=== PATIENT | male | born 1970 | race Caucasian/White ===

== ENCOUNTER 2024-01-28 19:29 | Emergency (ER) | payer BC, SELFPAY ==
[2024-01-28 19:39] VITALS: BP 161/120; PULSE 115; RESP 20; TEMP 36.6; O2SAT 97; BMI 38.0
--- NOTE | 2024-01-28 19:43 | XR_ITS ---
PROCEDURE INFORMATION: Exam: XR Left Knee Exam date and time: 01/28/2024 8:11 PM Age: 53 years old Clinical indication: Pain; Knee; Left; Additional info: Twisted on planted foot, knee pain/effusion TECHNIQUE: Imaging protocol: Radiologic exam of the left knee. Views: 3 views. COMPARISON: CR XR TIBIA FIBULA LT 2V 01/28/2024 8:09 PM FINDINGS: Bones/joints: Normal. Soft tissues: Normal. IMPRESSION: No acute findings.
--- NOTE | 2024-01-28 19:43 | XR_ITS ---
PROCEDURE INFORMATION: Exam: XR Left Tibia and Fibula Exam date and time: 01/28/2024 8:09 PM Age: 53 years old Clinical indication: Pain; Lower leg; Left; Additional info: Twisted on planted foot, knee pain/effusion TECHNIQUE: Imaging protocol: Radiologic exam of the left tibia and fibula. Views: 2 views. COMPARISON: No relevant prior studies available. FINDINGS: Bones/joints: Calcaneal spurring. No acute fracture or dislocation. Soft tissues: Normal. IMPRESSION: No acute findings.
--- NOTE | 2024-01-28 19:43 | XR_ITS ---
PROCEDURE INFORMATION: Exam: XR Left Femur Exam date and time: 01/28/2024 8:12 PM Age: 53 years old Clinical indication: Pain; Thigh; Left; Additional info: Twisted on planted foot, knee pain/effusion TECHNIQUE: Imaging protocol: Radiologic exam of the left femur. Views: 2 views. COMPARISON: CR XR KNEE LT 3V 01/28/2024 8:11 PM FINDINGS: Bones/joints: Unremarkable. No acute fracture. Soft tissues: Unremarkable. IMPRESSION: No acute findings.
[2024-01-28] MEDS: ACETAMINOPHEN 500MG TAB 1000 MG PO (19:55)
[2024-01-28] MEDS: OXYCODONE 5MG IMMEDIATE RELEASE TABLET 5 MG PO (19:56)
[2024-01-28] MEDS: KETOROLAC 30MG/ML VIAL 30 MG IM (19:56)
--- NOTE | 2024-01-28 19:59 | ED_ITS ---
Discharge Plan Disposition Patient Disposition: Home, Self-Care Condition: Good Prescriptions Prescriptions: New hydrocodone-acetaminophen 5-325 mg tablet 1 tab PO Q8H PRN (Reason: pain) Qty: 12 0RF Referrals Follow up/Referrals: Jace Mcdaniel DO [Staff Physician] - See instructions Chuy Haas MD [Primary Care Provider] - See instructions Activity Restrictions/Add. Instructions Additional Instructions/Restrictions: You were evaluated in the emergency department today. Please follow-up closely with Dr. Mcdaniel with orthopedics for further evaluation and management. You will need to call his office to schedule an appointment. receiving supervisor your prescription and take as needed for severe pain. Do not drive or operate heavy machinery while taking narcotic pain medication. You may also take ibuprofen in addition to this. Instead of this medication, you may take Tylenol, however be mindful not to double up on Tylenol as this medication does contain acetaminophen. Rest, ice, and elevate your leg to reduce pain and swelling. You may bear weight on your leg as tolerated, however we are providing crutches for you to use as needed to limit weightbearing in the event of pain or instability. Return to the emergency department for new or worsening symptoms. Clinical Impressions Clinical Impression: Effusion, left knee, Acute pain of left knee Stand Alone Forms Stand Alone Forms: Work/School Release Instructions Patient Instructions: DI for Knee Effusion, DI for Knee Pain Discharge ED Provider: Sheila Willams General Adult HPI General Chief complaint: Extremity Injury, Lower Stated complaint: AO 01/28/24 1830 injury left knee Time Seen by Provider: 01/28/24 19:31 Mode of Arrival: Wheelchair Source of Information: Patient Limitations: No Limitations Description of Symptoms (Recalled from ER Triage Doc. by RN): pt to ed with c/o left knee injury that happened approx 1 hour ago. 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 pt denies any other injury or pain. denies hitting his head, denies loc. pt has not taken any medications for the pain. reports pain 7/10 History of Present Illness HPI narrative: This patient is a 53-year-old male who denies significant past medical history presenting to the emergency department for evaluation with concern for left knee pain. Patient reports that he was chasing cows when he pivoted on a planted left lower extremity and his left knee gave out. This caused him to fall. He did not hit his head or lose consciousness, but he complains of significant knee pain with swelling at this time. No numbness, tingling, or other concerns. He was well prior to this. This happened just prior to arrival. Related Data Previous Rx's Medication Instructions Recorded hydrocodone 5 mg-acetaminophen 325 1 tab PO Q8H PRN pain #12 tabs 01/28/24 mg tablet Allergies Allergy/AdvReac Type Severity Reaction Status Date / Time No Known Allergies Allergy Verified 01/28/24 19:52 [facility] Disclaimer: The information contained in this section may have been updated after the patient was seen, as this information can be updated by other users. Social History Smoking Status: Never smoker alcohol intake: never current occupational status: employed Travel in the last 8 weeks: None ROS Obtained: Yes All systems reviewed & no additional complaints except as documented Physical Exam General General appearance: alert and obese Comment: Uncomfortable appearing Head Head exam: atraumatic and normocephalic Eye Eye exam: Present normal appearance, PERRL and EOMI ENT ENT exam: Present normal exam, normal oropharynx, mucous membranes moist and normal external ear exam Neck Neck exam: Present normal inspection, full ROM and trachea midline; Absent tenderness Chest Chest inspection: Present normal inspection and symmetric chest wall rise; Absent tenderness Respiratory Respiratory exam: Present normal lung sounds bilaterally; Absent respiratory distress, wheezes, stridor or accessory muscle use Cardiovascular Cardiovascular exam: Present regular rate and normal rhythm Abdominal Exam Abdominal exam: Present soft; Absent distention, tenderness or guarding Extremities Exam Extremities exam: Present full ROM, tenderness (Left knee effusion with associated tenderness to palpation. Intact quadriceps function with preserved straight leg raise. All compartments soft. Neurovascularly intact distally.) and normal capillary refill; Absent edema Back Exam Back exam: Present normal inspection and full ROM; Absent tenderness Neurological Exam Neurological exam: Present alert, oriented X3, CN II-XII intact and normal gait; Absent motor sensory deficit Psychiatric Psychiatric exam: Present normal affect and normal mood Skin Skin exam: Present warm and dry Medical Decision Making Medical Records Medical records reviewed: Yes I reviewed the patient's medical records. Tip Inquiry Pt receiving controlled substance: Yes Tip was queried for this patient: Yes Risks and benefits of using a controlled substance: were discussed with pt by me Vital Signs: 01/28/24 19:39 01/28/24 20:00 01/28/24 21:00 Temperature 97.9 F Temperature Source Oral Pulse Rate 107 H 98 H Pulse Rate [Right Radial] 115 H Respiratory Rate 20 Blood Pressure 140/95 H 145/103 H Blood Pressure [Right Arm] 161/120 H Blood Pressure Mean 110 113 Blood Pressure Mean [Right Arm] 133 Blood Pressure Source [Right Arm] Automatic Cuff Blood Pressure Position [Right Arm] Sitting 02 Sat by Pulse Oximetry 97 96 96 Oxygen Delivery Method Room Air 01/28/24 21:59 Temperature 97.9 F Temperature Source Oral Pulse Rate 91 H Pulse Rate [Right Radial] Respiratory Rate 18 Blood Pressure 143/91 H Blood Pressure [Right Arm] Blood Pressure Mean Blood Pressure Mean [Right Arm] Blood Pressure Source [Right Arm] Blood Pressure Position [Right Arm] 02 Sat by Pulse Oximetry Oxygen Delivery Method Lab Data Lab results reviewed: Yes I reviewed the patient's lab results. Orders (Tests/Meds): ED MEDICATIONS Discontinued Medications Generic Name Dose Route Start Last Admin Trade Name Freq PRN Reason Stop Dose Admin Acetaminophen 1,000 mg 01/28/24 19:43 01/28/24 19:55 Acetaminophen 500mg Tab PO 01/28/24 19:44 1,000 mg ONCE ONE Administration Ketorolac Tromethamine 30 mg 01/28/24 19:43 01/28/24 19:56 Ketorolac 30mg/Ml Vial IM 01/28/24 19:44 30 mg ONCE ONE Administration Oxycodone HCl 5 mg 01/28/24 19:44 01/28/24 19:56 Oxycodone 5mg Immediate Release Tablet PO 01/28/24 19:45 5 mg ONCE ONE Administration ORDERS Category Date Time Status XR femur LT 2V Stat Exams 01/28/24 19:43 Completed XR knee LT 3V Stat Exams 01/28/24 19:43 Completed XR tibia fibula LT 2V Stat Exams 01/28/24 19:43 Completed Medical Decision Narrative: In summary, this patient is a 53-year-old male presenting to the Emergency Department for evaluation of left knee pain after a plant and twist. Differential diagnoses considered include but are not limited to ligamentous injury, cartilaginous injury, fracture, contusion, strain/sprain. Ruling out the most morbid conditions drove assessment. On exam, the patient is uncomfortable appearing with a left knee effusion. Intact quadriceps function with intact straight leg raise. All compartments soft, neurovascularly intact distally. Workup included x-rays of the left femur, knee, and tib-fib. He was given oral oxycodone, IM Toradol, and oral Tylenol for symptomatic improvement. I independently interpreted x-ray prior to the radiologist read and noted cute fracture. Please see their read for final interpretation. On reassessment, patient is resting comfortably with improved pain. He is neuro vascularly intact. Given negative x-rays and reassuring exam, I feel that he is appropriate for discharge with close outpatient follow-up with orthopedics. He was given instructions for this as well as knee immobilizer and crutches. Patient was given a prescription for [place] given pain with significant knee effusion concerning for ligamentous injury. He was given instructions for safe use as well as strict return precautions. Patient was discharged after all questions were answered. Critical Care Critical Care Time Critical Care Time: No
[2024-01-28 20:00] VITALS: BP 140/95; PULSE 107; O2SAT 96
[2024-01-28 21:00] VITALS: BP 145/103; PULSE 98; O2SAT 96
--- NOTE | 2024-01-28 21:25 | PC.NURSE ---
spoke with radiology about scans reports
[2024-01-28 21:59] VITALS: BP 143/91; PULSE 91; RESP 18; TEMP 36.6; O2SAT 97
--- NOTE | 2024-01-29 10:54 | PC.NURSE ---
Accessed pt chart to complete ortho paperwork
== END 2024-01-28 22:00 | disposition home or self-care (01) ==
PROVIDERS: Emergency Provider Emergency Medicine; PCP Family Medicine
DX: M25.562 Pain in left knee (principal); M25.462 Effusion, left knee
CPT/HCPCS: 73552; 73562; 73590; 96372; 99283

== ENCOUNTER 2024-02-06 15:51 | Outpatient (CLI) | payer BC, SELFPAY ==
--- NOTE | 2024-02-06 15:55 | MR_ITS ---
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 Exam focused on the knee. COMPARISON: 1. CR XR KNEE LT 3V 01/28/2024 8:11 PM 2. CR XR FEMUR LT 2V 01/28/2024 8:12 PM 3. CR XR TIBIA FIBULA LT 2V 01/28/2024 8:09 PM FINDINGS: Bones/joints: There is bony contusion of the lateral femoral condyle. There is a moderate-sized joint effusion with associated synovitis. There is significant chondromalacia in the medial patellofemoral compartment. There is a contusion of the posterolateral tibial plateau Medial meniscus: Unremarkable. No tear. Lateral meniscus: Unremarkable. No tear. Anterior cruciate ligament: There is a full-thickness tear of the anterior cruciate ligament. Posterior cruciate ligament: Unremarkable. No tear. Medial capsule and supporting structures: Unremarkable. No tear. Lateral capsule and supporting structures: Unremarkable. No tear. Extensor mechanism of knee: Unremarkable. No tear. Soft tissues: Unremarkable. IMPRESSION: 1. Torn anterior cruciate ligament. 2. Moderate joint effusion with synovitis. 3. Bony contusions of the lateral femoral condyle and posterolateral tibial plateau without displaced fracture identified.
== END 2024-02-06 23:59 | disposition home or self-care (01) ==
LOC: RAD 15:52
PROVIDERS: PCP Family Medicine; Visit Provider Physician Assistant
DX: M25.562 Pain in left knee (principal)
CPT/HCPCS: 73721

== ENCOUNTER 2024-02-17 16:18 | Emergency (ER) | payer BC, SELFPAY ==
--- NOTE | 2024-02-17 16:16 | ED_ITS ---
<Statement entered by Rodo Domínguez MD - 02/17/24 18:11> I was consulted by the MARCIE, and we discussed the complexity of the problems being addressed. I approved the treatment and management plan for this patient's care in the emergency department, thus performing a substantive portion of the medical decision making. Patient has provoked bilateral pulmonary emboli status post tPA on original admission, downtrending troponins was discharged this morning. Patient is not able to complete activities of daily living at home, has uptrending leukocytosis, pulmonary infarct versus pneumonia that has been covered with ceftriaxone and azithromycin. First dose of Xarelto administered in the ER today, received Lovenox earlier this morning. Patient requires higher level care at this time will be transferred to [facility]. Rodo Domínguez MD Discharge Plan Disposition Patient Disposition: Xfer Short-Term Hosp Condition: Serious Chief Complaint: Chest Pain Prescriptions Prescriptions: No Action meloxicam 15 mg tablet 15 mg PO DAILY Xarelto DVT-PE Treat 30d Start 15 mg (42)- 20 mg (9) tablets,dose pack See Rx Instructions .ROUTE .COMPLEX Qty: 51 0RF Rx Instructions: take one-15 mg tablet twice daily for 21 days, then one-20 mg tablet once daily; must take with meal/food pantoprazole [Protonix] 40 mg tablet,delayed release (DR/EC) 40 mg PO DAILY Qty: 30 0RF Referrals Follow up/Referrals: Provider,Referral, [Referring] - See instructions Activity Restrictions/Add. Instructions Additional Instructions/Restrictions: Transfer to [facility] emergency department in care of Dr. Oseguera Clinical Impressions Clinical Impression: Sepsis without septic shock, Multiple pulmonary emboli, Bilateral pneumonia Stand Alone Forms Stand Alone Forms: Transfer Record - ED Discharge ED Provider: Rodo Domínguez HPI <ALTHEA Krueger - Last Filed: 02/17/24 17:58> General Chief Complaint: Chest Pain Stated Complaint: chest pain Time Seen by Provider: 02/17/24 16:19 History of Present Illness HPI narrative: Patient presents for evaluation of chest pain. Patient was just discharged this morning after eating admitted for multiple pulmonary emboli. The sequela started after he injured his left knee in November suffering an ACL injury. Patient presented in the morning hours of February 14 with respiratory distress. He was found to have multiple pulmonary emboli and he was unstable and was given tPA and admitted to our facility he underwent cardiology evaluation including bedside echo that did not show significant heart strain or heart failure. He had had an initially elevated troponin that has trended down. He did not have chest pain prior to his discharge and was not sent home with oxygen. He was transition to oral anticoagulants with Eliquis starter pack. However after arriving home patient has been home approximately 1 hour sitting in a chair and he started having right-sided chest pain in the lower chest and subsequently called EMS. Patient currently reports that his chest pain has diminished quite a bit but still reports shortness of breath feeling subjectively feverish but denies nausea vomiting diarrhea hemoptysis hematochezia melena hematemesis. Related Data Home Medications Medication Instructions Recorded Confirmed meloxicam 15 mg tablet 15 mg PO DAILY 02/15/24 02/15/24 Previous Rx's Medication Instructions Recorded pantoprazole 40 mg tablet,delayed 40 mg PO DAILY #30 tabs 02/17/24 release (Protonix) rivaroxaban 15 mg (42)-20 mg (9) See Rx Instructions PO .COMPLEX 02/17/24 tablets in a starter pack (Xarelto #51 tabs DVT-PE Treatment 30-Day Starter) Allergies Allergy/AdvReac Type Severity Reaction Status Date / Time No Known Allergies Allergy Verified 02/15/24 08:19 [facility] <ALTHEA Krueger - Last Filed: 02/17/24 17:58> [facility] Disclaimer: The information contained in this section may have been updated after the patient was seen, as this information can be updated by other users. Family History Father Family history of cancer Family history of myocardial infarction Family history of hypertension Mother Family history of cancer Family history of hypertension Social History Smoking Status: Former smoker alcohol intake: current current occupational status: employed Travel in the last 8 weeks: None <ALTHEA Krueger - Last Filed: 02/17/24 17:58> ROS Obtained: Yes Systems reviewed as appropriate & no additional complaints except as documented Physical Exam <ALTHEA Krueger - Last Filed: 02/17/24 17:58> General General appearance: alert and in no apparent distress Head Head exam: atraumatic and normal inspection Eye Eye exam: Present normal appearance ENT ENT exam: Present normal exam Neck Neck exam: Present normal inspection Chest Chest inspection: Present normal inspection and symmetric chest wall rise; Absent tenderness Respiratory Respiratory exam: Present normal lung sounds bilaterally (Patient has diminished breath sounds at the bases with some rhonchi); Absent wheezes or accessory muscle use Cardiovascular Cardiovascular exam: Present normal rhythm, tachycardia and normal heart sounds Abdominal Exam Abdominal exam: Present soft (Obese) and normal bowel sounds; Absent tenderness, guarding or rebound Extremities Exam Extremities exam: Present tenderness (Bilateral posterior calf tenderness), edema and calf tenderness; Absent full ROM (The right lower extremity has full range of motion the left lower extremity is in a long-leg knee brace) Back Exam Back exam: Present normal inspection Neurological Exam Neurological exam: Present alert, oriented X3 and CN II-XII intact Psychiatric Psychiatric exam: Present normal affect and normal mood Skin Skin exam: Present warm, dry and normal color HEART Score <ALTHEA Krueger - Last Filed: 02/17/24 17:58> HEART Score Troponin: 1-3x normal limit HEART Score: 4 <Rodo Domínguez MD - Last Filed: 02/17/24 16:29> HEART Score HEART Score assessment performed?: Yes History (anamnesis): Highly suspicious ECG: Normal Age: 45-65 years Risk factors: No known risk factors Critical Care <ALTHEA Krueger - Last Filed: 02/17/24 17:58> Critical Care Time Critical Care Time: No Medical Decision Making <ALTHEA Krueger - Last Filed: 02/17/24 17:58> Medical Records Medical records reviewed: Yes I reviewed the patient's medical records. Tip Inquiry Pt receiving controlled substance: No Vital Signs Vital Signs: 02/17/24 16:18 02/17/24 16:46 Temperature 100.0 F H Temperature Source Oral Pulse Rate 111 H Pulse Rate [Apical] 112 H Respiratory Rate 20 28 H Blood Pressure 135/88 Blood Pressure [Right Arm] 134/84 Blood Pressure Mean [Right Arm] 100 Blood Pressure Source [Right Arm] Automatic Cuff Blood Pressure Position [Right Arm] Sitting 02 Sat by Pulse Oximetry 94 L 97 Oxygen Delivery Method Room Air Lab Data Lab results reviewed: Yes I reviewed the patient's lab results. Labs: Lab Results 02/17/24 16:19: WBC 17.8 H D, RBC 4.62, Hgb 13.5 L, Hct 41.5 L, MCV 89.9, MCH 29.3, MCHC 32.6, RDW 14.4, Plt Count 358, MPV 9.0, Neut % (Auto) 85.8 H, Lymph % (Auto) 6.4 L, Nance % (Auto) 6.9, Eos % (Auto) 0.3, Baso % (Auto) 0.5, Neut # (Auto) 15.3 H, Lymph # (Auto) 1.1, Nance # (Auto) 1.2 H, Eos # (Auto) 0.1, Baso # (Auto) 0.1, Sodium 136, Potassium 3.9, Chloride 96 L, Carbon Dioxide 28, Anion Gap 15.9 H, BUN 14, Creatinine 0.80, Estimated Creat Clear 210, Estimated GFR 102, Est GFR ( Amer) 123, Glucose 122 H, Calcium 9.0, Total Bilirubin 1.2, AST 44 D, ALT 49 D, Alkaline Phosphatase 80, Troponin I 0.06 H, Total Protein 7.9, Albumin 4.2 D, Globulin 3.7 H, Albumin/Globulin Ratio 1.1, Procalcitonin 0.167 02/17/24 16:20: VBG pH 7.39, VBG pCO2 38.6, VBG pO2 59.0 H, VBG HCO3 22.6 L, VBG Total CO2 23.8, VBG O2 Saturation 89.4 H, VBG Base Excess -2.4, VBG Lactic Acid 2.7 H 02/17/24 16:19 02/17/24 16:19 Response Orders (Tests/Meds): ED MEDICATIONS Generic Name Dose Route Start Last Admin Trade Name Freq PRN Reason Stop Dose Admin Azithromycin 500 mg/ Sodium 250 mls @ 250 mls/hr 02/17/24 17:30 Chloride IV 02/27/24 17:29 Q24H BIANKA Ceftriaxone Sodium 1 gm/ 50 mls @ 100 mls/hr 02/17/24 17:30 Sodium Chloride IV 02/27/24 17:29 Q24H BIANKA Discontinued Medications Generic Name Dose Route Start Last Admin Trade Name Freq PRN Reason Stop Dose Admin Acetaminophen 1,000 mg 02/17/24 16:17 02/17/24 16:38 Acetaminophen 1,000mg/100ml Vial IV 02/17/24 16:18 1,000 mg ONCE ONE Administration Lactated Ringer's 1,000 mls @ 999 mls/hr 02/17/24 16:17 02/17/24 16:38 Lactated Ringer's 1000 Ml Bag IV 02/17/24 17:17 999 mls/hr .Q1H1M ONE Administration Iopamidol 70 ml 02/17/24 17:11 02/17/24 17:12 Iopamidol-370 (76%);100ml Bottle IV 02/17/24 17:12 70 ml ONCE ONE Administration Rivaroxaban 15 mg 02/17/24 17:15 02/17/24 17:12 Rivaroxaban 15mg Tablet PO 02/17/24 17:16 15 mg ONCE ONE Administration Sodium Chloride 10 ml 02/17/24 17:11 02/17/24 17:12 Sodium Chloride 0.9% 10ml Syr (Rad Only) IV 02/17/24 17:12 10 ml ONCE ONE Administration Sodium Chloride 50 ml 02/17/24 17:11 02/17/24 17:12 0.9 % Sodium Chloride 50 Ml Vial IV 02/17/24 17:12 50 ml ONCE ONE Administration ORDERS Category Date Time Status CT angio chest PE protocol Stat Cat Scan 02/17/24 16:17 Completed CBC w/Auto Diff [Complete Blood Count Auto Diff] Stat Lab 02/17/24 16:19 Results CMP [Comprehensive Metabolic Panel] Stat Lab 02/17/24 16:19 Completed Procalcitonin Stat Lab 02/17/24 16:19 Completed Trop I [Troponin I] Stat Lab 02/17/24 16:19 Completed Troponin I Q3H Lab 02/17/24 19:30 Ordered Troponin I Q3H Lab 02/17/24 22:30 Ordered Blood Culture Stat Micro 02/17/24 16:21 Ordered VBG [Venous Blood Gas] Stat RT 02/17/24 16:20 Completed MDM Narrative Medical Decision Narrative: In summary patient is a 53-year-old male who presents to the emergency department for evaluation of chest pain. Patient is normotensive tachycardic febrile tachypneic upon arrival satting at 90 to 91% on room air. Physical exam is remarkable for morbidly obese, BMI of 40, 53-year-old gentleman who arrives tachypneic febrile satting at 9091% on room air. Breath sounds are diminished bilaterally with rhonchi but no wheezing no accessory muscle use. Left lower extremity is still in leg splint but he has bilateral lower extremity edema and Tenderness to palpation. Patient has no chest pain to palpation.. Differential diagnosis includes pneumonia versus pulmonary infarction versus ACS [employer]. Initial workup will be conducted with hematologic labs twelve-lead EKG CTA of the chest. Initial interventions include supplemental O2 and continuous pulse oximetry continuous cardiac monitoring fluid bolus and Tylenol. Initial workup reviewed by me shows that his white count has gone up to nearly 18,000 with a left shift, he has a slight gap acidosis troponin has continued to trend down and is currently 0.06 and his procalcitonin is 0.167 my informal interpretation of his CTA of his chest does not show any increase in thrombus however it does show bilateral consolidation concerning for either atelectasis or early pneumonia or pulmonary infarct. Upon repeat evaluation patient still remains tachycardic tachypneic febrile satting at 96% on 2 L by nasal cannula. Given this had interactive discussion with the [facility] Dr. Oseguera regarding patient management and he has been accepted to [facility] emergency department for further evaluation and care. <Rodo Domínguez MD - Last Filed: 02/17/24 16:29> Vital Signs Vital Signs: 02/17/24 16:18 02/17/24 16:46 Temperature 100.0 F H Temperature Source Oral Pulse Rate 111 H Pulse Rate [Apical] 112 H Respiratory Rate 20 28 H Blood Pressure 135/88 Blood Pressure [Right Arm] 134/84 Blood Pressure Mean [Right Arm] 100 Blood Pressure Source [Right Arm] Automatic Cuff Blood Pressure Position [Right Arm] Sitting 02 Sat by Pulse Oximetry 94 L 97 Oxygen Delivery Method Room Air Lab Data Labs: Lab Results 02/17/24 16:19: WBC 17.8 H D, RBC 4.62, Hgb 13.5 L, Hct 41.5 L, MCV 89.9, MCH 29.3, MCHC 32.6, RDW 14.4, Plt Count 358, MPV 9.0, Neut % (Auto) 85.8 H, Lymph % (Auto) 6.4 L, Nance % (Auto) 6.9, Eos % (Auto) 0.3, Baso % (Auto) 0.5, Neut # (Auto) 15.3 H, Lymph # (Auto) 1.1, Nance # (Auto) 1.2 H, Eos # (Auto) 0.1, Baso # (Auto) 0.1, Sodium 136, Potassium 3.9, Chloride 96 L, Carbon Dioxide 28, Anion Gap 15.9 H, BUN 14, Creatinine 0.80, Estimated Creat Clear 210, Estimated GFR 102, Est GFR ( Amer) 123, Glucose 122 H, Calcium 9.0, Total Bilirubin 1.2, AST 44 D, ALT 49 D, Alkaline Phosphatase 80, Troponin I 0.06 H, Total Protein 7.9, Albumin 4.2 D, Globulin 3.7 H, Albumin/Globulin Ratio 1.1, Procalcitonin 0.167 02/17/24 16:20: VBG pH 7.39, VBG pCO2 38.6, VBG pO2 59.0 H, VBG HCO3 22.6 L, VBG Total CO2 23.8, VBG O2 Saturation 89.4 H, VBG Base Excess -2.4, VBG Lactic Acid 2.7 H Response Orders (Tests/Meds): ED MEDICATIONS Generic Name Dose Route Start Last Admin Trade Name Freq PRN Reason Stop Dose Admin Azithromycin 500 mg/ Sodium 250 mls @ 250 mls/hr 02/17/24 17:30 Chloride IV 02/27/24 17:29 Q24H BIANKA Ceftriaxone Sodium 1 gm/ 50 mls @ 100 mls/hr 02/17/24 17:30 Sodium Chloride IV 02/27/24 17:29 Q24H BIANKA Discontinued Medications Generic Name Dose Route Start Last Admin Trade Name Freq PRN Reason Stop Dose Admin Acetaminophen 1,000 mg 02/17/24 16:17 02/17/24 16:38 Acetaminophen 1,000mg/100ml Vial IV 02/17/24 16:18 1,000 mg ONCE ONE Administration Lactated Ringer's 1,000 mls @ 999 mls/hr 02/17/24 16:17 02/17/24 16:38 Lactated Ringer's 1000 Ml Bag IV 02/17/24 17:17 999 mls/hr .Q1H1M ONE Administration Iopamidol 70 ml 02/17/24 17:11 02/17/24 17:12 Iopamidol-370 (76%);100ml Bottle IV 02/17/24 17:12 70 ml ONCE ONE Administration Rivaroxaban 15 mg 02/17/24 17:15 02/17/24 17:12 Rivaroxaban 15mg Tablet PO 02/17/24 17:16 15 mg ONCE ONE Administration Sodium Chloride 10 ml 02/17/24 17:11 02/17/24 17:12 Sodium Chloride 0.9% 10ml Syr (Rad Only) IV 02/17/24 17:12 10 ml ONCE ONE Administration Sodium Chloride 50 ml 02/17/24 17:11 02/17/24 17:12 0.9 % Sodium Chloride 50 Ml Vial IV 02/17/24 17:12 50 ml ONCE ONE Administration ORDERS Category Date Time Status CT angio chest PE protocol Stat Cat Scan 02/17/24 16:17 Completed CBC w/Auto Diff [Complete Blood Count Auto Diff] Stat Lab 02/17/24 16:19 Results CMP [Comprehensive Metabolic Panel] Stat Lab 02/17/24 16:19 Completed Procalcitonin Stat Lab 02/17/24 16:19 Completed Trop I [Troponin I] Stat Lab 02/17/24 16:19 Completed Troponin I Q3H Lab 02/17/24 19:30 Ordered Troponin I Q3H Lab 02/17/24 22:30 Ordered Blood Culture Stat Micro 02/17/24 16:21 Ordered VBG [Venous Blood Gas] Stat RT 02/17/24 16:20 Completed ECG Data Tracing #1: ECG Narrative: Independently interpreted by me, rate is 107, rhythm is regular, axis is normal, no ST elevation in anatomical contiguous leads, QTc 388.
--- NOTE | 2024-02-17 16:17 | CT_ITS ---
PROCEDURE INFORMATION: Exam: CTA Chest With Contrast Exam date and time: 02/17/2024 5:05 PM Age: 53 years old Clinical indication: Pain; Chest pressure; Additional info: Chest pain, multiple pes, bilateral dvts TECHNIQUE: Imaging protocol: Computed tomographic angiography of the chest with contrast. Exam focused on the arteries. 3D rendering (Not supervised by radiologist): MIP and/or 3D reconstructed images were created by the technologist. Radiation optimization: All CT scans at this facility use at least one of these dose optimization techniques: automated exposure control; mA and/or kV adjustment per patient size (includes targeted exams where dose is matched to clinical indication); or iterative reconstruction. Contrast material: ISOVUE 370; Contrast volume: 70 ml; Contrast route: INTRAVENOUS (IV); COMPARISON: 1. CT ANGIO CHEST PE PROTOCOL 02/16/2024 12:[address] ANGIO CHEST PE PROTOCOL 02/15/2024 4:25 AM FINDINGS: Pulmonary arteries: Redemonstrated are extensive bilateral pulmonary emboli which are not changed in size or distribution from the day prior. Aorta: Unremarkable. No aortic aneurysm. No aortic dissection. Lungs: There is a calcified granuloma in the right upper lobe. There is increasing parenchymal consolidation at the lung bases which may reflect progression of infarct versus superimposed infection. Pleural spaces: Unremarkable. No pneumothorax. No pleural effusion. Heart: Stable findings of right heart strain. Heart RV/LV ratio: The RV to LV ratio is 1.2 Lymph nodes: There are calcified mediastinal lymph nodes likely reflecting prior granulomatous disease. Diaphragm: There is a moderate hiatal hernia. Liver: There are calcifications in the liver which most likely reflect calcified granulomas. Spleen: There are multiple calcifications in the spleen most likely reflects small granulomas. Bones/joints: Unremarkable. No acute fracture. Soft tissues: Unremarkable. IMPRESSION: 1. Redemonstrated are extensive bilateral pulmonary emboli which are not changed in size or distribution from the day prior. 2. There is increasing parenchymal consolidation at the lung bases which may reflect progression of infarct versus superimposed infection. 3. Stable findings of right heart strain.
[2024-02-17 16:18] VITALS: BP 134/84; PULSE 112; RESP 20; TEMP 37.8; O2SAT 94; BMI 40.6
--- NOTE | 2024-02-17 16:25 | ECG_ITS ---
APPROVED REPORT Exam: Resting ECG HR:107 bpm ECG Measurements Heart Rate 107 AXES CA 147 P 51 QRSd 90 QRS 61 QT 325 T 44 QTc 388 Conclusion SINUS TACHYCARDIA ABNORMAL RHYTHM ECG Electronically signed by : JAYLA JAIME, 02/17/2024 20:18:25
[2024-02-17 16:29] LABS: VBG Base Excess -2.4 mmol/L (-2.4-2.3); VBG HCO3 22.6 mmol/L (23-30); VBG Oxygen Saturation 89.4 % (50-70); VBG PCO2 38.6 mmol/L (35-51); VBG PH 7.39 mmol/L (7.31-7.41); VBG Total CO2 23.8 mmol/L (23-27)
[2024-02-17 16:30] LABS: Basophils # 0.1 K/mm3 (0-0.2); Basophils % 0.5 % (0.1-2.0); Eosinophils # 0.1 K/mm3 (0.0-0.4); Eosinophils % 0.3 % (0.1-12.0); Hematocrit 41.5 % (42.0-52.0); Hemoglobin 13.5 g/dL (14.1-18.0); Lymphocytes # 1.1 K/mm3 (0.7-4.5); Lymphocytes % 6.4 % (10-50); Mean Corpuscular HGB Conc 32.6 g/dL (31.8-35.4); Mean Corpuscular Hemoglobin 29.3 pg (27.0-31.2); Mean Corpuscular Volume 89.9 fl (80-94); Monocytes # 1.2 K/mm3 (0.1-1.0); Monocytes % 6.9 % (1.7-9.3); Neutrophils # 15.3 K/mm3 (1.8-7.8); Neutrophils % 85.8 % (37.0-80.0); Platelet Count 358 K/mm3 (142-424); Red Blood Count 4.62 M/mm3 (4.60-6.20); Red Cell Distribution Width 14.4 % (11.5-17.5); White Blood Count 17.8 K/mm3 (4.8-10.8)
[2024-02-17 16:30] LABS: Lactate Venous 2.7 mmol/L (0.4-2.0)
--- NOTE | 2024-02-17 16:36 | PC.NURSE ---
pt 90-91% on room air, returned to 2l/nc
[2024-02-17] MEDS: LACTATED RINGERS 1000ML 1,000 ML 999 ML IV (16:38)
[2024-02-17] MEDS: ACETAMINOPHEN 1,000MG/100ML VIAL 1000 MG IV (16:38)
[2024-02-17 16:40] LABS: MANUAL DIFFERENTIAL MANUAL DIFFERENTIAL (MANUAL DIFF)
[2024-02-17 16:43] LABS: Alanine Aminotransferase 49 U/L (12-78); Albumin Level 4.2 g/dl (3.5-5.0); Albumin/Globulin Ratio 1.1 (1.1-1.8); Alkaline Phosphatase 80 U/L (38-126); Anion Gap 15.9 mEq/L (5-15); Aspartate Amino Transferase 44 U/L (17-59); Bilirubin,Total 1.2 mg/dl (0.2-1.3); Blood Urea Nitrogen 14 mg/dl (9-20); Carbon Dioxide 28 mmol/L (22.0-30.0); Chloride 96 mmol/L (98-107); Creatinine Clearance Estimated 210 mL/min (50-200); Estimated Glomerular Filt Rate 102 ml/min (>60); GFR (African American) 123 ML/MIN (>60); Globulin 3.7 g/dL (1.3-3.2); Glucose 122 mg/dl (74-100); Potassium 3.9 mmoL/L (3.5-5.1); Sodium 136 mmol/L (136-145); Total Protein,Serum 7.9 g/dl (6.3-8.2)
[2024-02-17 16:46] VITALS: BP 135/88; PULSE 111; RESP 28; O2SAT 97
[2024-02-17 16:54] LABS: Troponin I 0.06 ng/ml (0.00-0.034)
[2024-02-17 17:00] LABS: Procalcitonin 0.167 ng/mL (0.0-2.0)
[2024-02-17] MEDS: SODIUM CHLORIDE 0.9% 10ML SYR (RAD ONLY) 10 ML IV (17:12)
[2024-02-17] MEDS: 0.9 % SODIUM CHLORIDE 50 ML VIAL IV (17:12)
[2024-02-17] MEDS: IOPAMIDOL-370 (76%);100ML BOTTLE 70 ML IV (17:12)
[2024-02-17] MEDS: RIVAROXABAN 15MG TABLET 15 MG PO (17:12)
[2024-02-17 17:30] VITALS: BP 108/65; PULSE 105; O2SAT 96
--- NOTE | 2024-02-17 17:38 | PC.NURSE ---
Dr. Domínguez at bedside
[2024-02-17 17:39] LABS: Eosinophils % 1 % (0-3); Lymphocytes % 19 % (10-50); Monocytes % 7 % (2-9); Neutrophils % 71 % (42-76); Total Cells Counted 100
[2024-02-17 17:40] LABS: Platelet Estimate Normal; RBC Morphology Normal
--- NOTE | 2024-02-17 17:40 | PC.NURSE ---
Called [facility] per Dr Clarke to speak with them about this pt. Advised they would call back as soon as they make contact with there provider
--- NOTE | 2024-02-17 17:48 | PC.NURSE ---
dr pierre at bedside to update pt and family
--- NOTE | 2024-02-17 17:48 | PC.NURSE ---
goran stratton speaking with dr huntley at
[2024-02-17 18:00] VITALS: BP 116/74; PULSE 105; O2SAT 96
[2024-02-17] MEDS: CEFTRIAXONE SODIUM 1 GM in 0.9 % SODIUM CHLORIDE 50 ML IV (18:05)
--- NOTE | 2024-02-17 18:06 | PC.NURSE ---
report called to desi oswald at [facility]
[2024-02-17] MEDS: AZITHROMYCIN 500 MG in 0.9 % SODIUM CHLORIDE 250 ML 250 MG IV (18:14)
[2024-02-17 18:29] VITALS: BP 116/74; PULSE 103; RESP 24; TEMP 37.6; O2SAT 96
[2024-02-17 20:30] LABS: Reflex Lactic Add Lactic Reflex
== END 2024-02-17 18:31 | disposition short-term general hospital (02) ==
PROVIDERS: Physician Assistant; Emergency Provider Emergency Medicine; PCP Family Medicine
DX: A41.9 Sepsis, unspecified organism (principal); R07.89 Other chest pain; J18.8 Other pneumonia, unspecified organism; I26.94 Multiple subsegmental thrombotic pulmonary emboli without acute cor pulmonale; R00.0 Tachycardia, unspecified; Z87.891 Personal history of nicotine dependence; R06.82 Tachypnea, not elsewhere classified; R50.9 Fever, unspecified; D72.829 Elevated white blood cell count, unspecified; E66.01 Morbid (severe) obesity due to excess calories; Z68.41 Body mass index [BMI] 40.0-44.9, adult
CPT/HCPCS: 71275; 80053; 82803; 84145; 84484; 85007; 85025; 87040; 93005; 96361; 96365; 96375; 99285; J0131; J0456; J0696; J7030; J7120; Q9967

== ENCOUNTER 2024-03-19 12:23 | Outpatient (CLI) | payer BC, SELFPAY ==
[2024-03-19 18:21] LABS: Hemoglobin A1C 5.8 % (4.0-6.0)
[2024-03-19 19:09] LABS: Alanine Aminotransferase 32 U/L (12-78); Albumin Level 4.2 g/dl (3.5-5.0); Albumin/Globulin Ratio 1.4 (1.1-1.8); Alkaline Phosphatase 80 U/L (38-126); Anion Gap 9.7 mEq/L (5-15); Aspartate Amino Transferase 28 U/L (17-59); Bilirubin,Total 0.4 mg/dl (0.2-1.3); Blood Urea Nitrogen 20 mg/dl (9-20); Calcium 9.9 mg/dl (8.4-10.2); Carbon Dioxide 29 mmol/L (22.0-30.0); Chloride 105 mmol/L (98-107); Chol/HDL Ratio 3.1 (1-3.5); Cholesterol 157 mg/dl (140-200); Estimated Glomerular Filt Rate 119 ml/min (>60); GFR (African American) 144 ML/MIN (>60); Globulin 3.1 g/dL (1.3-3.2); Glucose 116 mg/dl (74-100); HDL Cholesterol 51 mg/dl (40-60); Potassium 4.7 mmoL/L (3.5-5.1); Sodium 139 mmol/L (136-145); Total Protein,Serum 7.3 g/dl (6.3-8.2); Triglycerides 92 mg/dl (30-150); VLDL Cholesterol 18 mg/dL (0-40)
[2024-03-19 19:20] LABS: Direct LDL Cholesterol 84.53 mg/dL (100-129)
== END 2024-03-19 23:59 | disposition home or self-care (01) ==
LOC: LAB.DROPOF 03-22 12:23
PROVIDERS: PCP Family Medicine; Visit Provider Family Medicine
DX: R73.09 Other abnormal glucose (principal); I10 Essential (primary) hypertension; Z87.891 Personal history of nicotine dependence
CPT/HCPCS: 80053; 80061; 83036

== ENCOUNTER 2024-04-19 12:42 | Outpatient (CLI) | payer BC, SELFPAY ==
--- NOTE | 2024-04-19 12:43 | CA_ITS ---
FINAL REPORT CLINICAL HISTORY: Bilateral DVT and PE 02-15-24 F/U scan due to continued swelling, pain and redness. L ACL tear 01/2024 not repaired d/t PE, DVT and now anticoagulants. Pt still on crutches Left leg continues to swell and redness from knee to ankle. Pt on Xarelto 20mg since February COMPARISON: 02/15/2024 FINDINGS: Color Doppler, duplex Doppler and compression sonography of the bilateral lower extremities was performed. On the right, there is no evidence of deep venous thrombosis from the level of the groin to the calf. The deep veins are patent and compressible. On the left, there is persistent but improved deep venous thrombosis in the left popliteal vein. The left peroneal and posterior tibial veins are not well seen. IMPRESSION: Persistent but improved DVT left popliteal vein. No evidence of deep venous thrombosis right lower extremity. Reviewed, Interpreted and Dictated by Lucas Burger III, MD Transcribed by Abby Atkins Authenticated and [facility]
== END 2024-04-19 23:59 | disposition home or self-care (01) ==
LOC: RT 12:43
PROVIDERS: PCP Family Medicine; Visit Provider Internal Medicine Pulmonary Disease
DX: I82.403 Acute embolism and thrombosis of unspecified deep veins of lower extremity, bilateral (principal)
CPT/HCPCS: 93970

== ENCOUNTER 2024-06-17 16:00 | Outpatient (RCR) | payer BC, SELFPAY | END 2024-06-17 16:05 | disposition home or self-care (01) | LOC: PT 16:00 | PROVIDERS: Visit Provider Physician Assistant | DX: M25.562 Pain in left knee (principal); S83.512A Sprain of anterior cruciate ligament of left knee, initial encounter | CPT/HCPCS: 97110; 97116; 97163; 97164; 97530 ==

== ENCOUNTER 2024-08-20 09:18 | Outpatient (CLI) | payer BC, SELFPAY ==
--- NOTE | 2024-08-20 09:25 | CA_ITS ---
APPROVED REPORT EXAM: Comprehensive 2D, Doppler, and color-flow Echocardiogram [employer] Operator: Jagruti Friedman CRT Ht: 6 ft 0 in Wt: 306lbs BSA: 2.55 BP: 136/84 mmHg Indications: PE 05/01, HTN, DM, edema 2D Dimensions LA Volume 57.00 mL LA Volume Index 21.80 mL/m2 (M/F) 16-34 M-Mode Dimensions RVDd 2.92 cm (0.9-2.6) LA Diam 4.24 cm (1.9-4.0) LVDd 4.81 cm (3.5-5.7) LVDs 2.56 cm (3.5-5.7) IVSd 2.24 cm (0.6-1.1) PWd 0.72 cm (0.6-1.1) EF (Teich) 78.10% FS 46.80% EDV (Teich) 108.00 mL TAPSE 0.94 (<1.7) ESV (Teich) 23.70 mL LV Diastology E Decel Time 67 (160-240 msec) E/A Ratio 0.91 MED A' 15.40 cm/s LAT A' 10.50 cm/s Aortic Valve AO Peak GR. 9.40 mmHg Mitral Valve MV A Velocity 81.0 (40-130 cm/s) E/A Ratio 0.91 Pulmonary Valve PV Peak Velocity 94.0 (50-150 cm/s) Tricuspid Valve TR P. Velocity 177.00 cm/s RAP Estimate 10.00 mmHg RVSP 22.60 mmHg Left Ventricle The left ventricle is normal size. The left ventricular systolic function is normal. The left ventricular ejection fraction is within the normal range. There is normal left ventricular wall thickness. There is normal LV segmental wall motion. The left ventricular diastolic function is normal. LVEF is 55%. Right Ventricle Right ventricle is mildly dilated. The right ventricular systolic function is normal. Atria The left atrium size is normal. The right atrium size is normal. There is no Doppler evidence of interatrial shunt. Aortic Valve The aortic valve is mildly thickened. There is no aortic valvular stenosis. No aortic regurgitation is present. Mitral Valve The mitral valve is normal in structure. No evidence of mitral valve stenosis. Trace mitral regurgitation. Tricuspid Valve Tricuspid valve is grossly normal in structure and function. Trace tricuspid regurgitation. There is insufficient TR jet to estimate RVSP. Pulmonic Valve The pulmonary valve is normal in structure. Trace pulmonic regurgitation. Great Vessels The aortic root is normal in size. IVC is normal in size and collapses >50% with inspiration. Pericardium There is no pericardial effusion. Other Information Study Quality: Fair Conclusion Normal biventricular systolic function. Mild RV dilation. No significant valvular stenosis or regurgitation. Electronically signed by : Desi Bernstein MD 09/01/2024 15:00:42
--- NOTE | 2024-08-20 09:25 | CA_ITS ---
FINAL REPORT CLINICAL HISTORY: HTN, DM, edema with left > right, hx of DVT in left POPV 04/2024, still taking Xarelto daily. Returned to work 3 weeks ago, edema bilaterally began then. FINDINGS: Color Doppler, duplex Doppler and compression sonography of the bilateral lower extremities was performed. There is no evidence of deep venous thrombosis from the level of the groin to the calf. The deep veins are patent and compressible. IMPRESSION: No evidence of deep venous thrombosis bilateral lower extremities. Reviewed, Interpreted and Dictated by Lucas Burger III, MD Transcribed by Akilah Arriaga Authenticated and [facility]
== END 2024-08-20 23:59 | disposition home or self-care (01) ==
LOC: RT 09:19
PROVIDERS: PCP Family Medicine; Visit Provider Internal Medicine Pulmonary Disease
DX: I51.7 Cardiomegaly (principal); R06.02 Shortness of breath; M79.89 Other specified soft tissue disorders; Z86.718 Personal history of other venous thrombosis and embolism
CPT/HCPCS: 93306; 93970

== ENCOUNTER 2024-08-20 14:02 | Outpatient (CLI) | payer BC, SELFPAY ==
[2024-08-20 18:06] LABS: Basophils % 0.5 % (0.1-2.0); Eosinophils # 0.1 K/mm3 (0.0-0.4); Eosinophils % 2.3 % (0.1-12.0); Hemoglobin 14.2 g/dL (14.1-18.0); Lymphocytes # 1.6 K/mm3 (0.7-4.5); Lymphocytes % 26.2 % (10-50); Mean Corpuscular HGB Conc 32.4 g/dL (31.8-35.4); Mean Corpuscular Hemoglobin 28.3 pg (27.0-31.2); Mean Corpuscular Volume 87.4 fl (80-94); Mean Platelet Volume 9.9 fl (7.4-10.4); Monocytes # 0.5 K/mm3 (0.1-1.0); Monocytes % 7.6 % (1.7-9.3); Neutrophils # 3.9 K/mm3 (1.8-7.8); Neutrophils % 63.4 % (37.0-80.0); Platelet Count 342 K/mm3 (142-424); Red Blood Count 5.04 M/mm3 (4.60-6.20); Red Cell Distribution Width 15.3 % (11.5-17.5); White Blood Count 6.2 K/mm3 (4.8-10.8)
[2024-08-20 18:46] LABS: Chloride 107 mmol/L (98-107); Sodium 141 mmol/L (136-145)
[2024-08-20 18:49] LABS: Blood Urea Nitrogen 17 mg/dl (9-20); Calcium 9.4 mg/dl (8.4-10.2); Carbon Dioxide 25 mmol/L (22.0-30.0); Cholesterol 177 mg/dl (140-200); Estimated Glomerular Filt Rate 102 ml/min (>60); GFR (African American) 123 ML/MIN (>60); Glucose 103 mg/dl (74-100); HDL Cholesterol 44 mg/dl (40-60); Triglycerides 97 mg/dl (30-150); VLDL Cholesterol 19 mg/dL (0-40)
[2024-08-20 19:01] LABS: Direct LDL Cholesterol 117.29 mg/dL (100-129)
[2024-08-20 19:07] LABS: Anion Gap 13.4 mEq/L (5-15); Potassium 4.4 mmoL/L (3.5-5.1)
== END 2024-08-20 23:59 | disposition home or self-care (01) ==
LOC: LAB.DROPOF 08-21 09:18
PROVIDERS: PCP Family Medicine; Visit Provider Family Medicine
DX: I10 Essential (primary) hypertension (principal)
CPT/HCPCS: 80048; 80061; 85025

== ENCOUNTER 2024-12-24 09:07 | Outpatient (CLI) | payer BC, SELFPAY ==
[2024-12-24 19:15] LABS: Alanine Aminotransferase 39 U/L (12-78); Albumin Level 4.3 g/dl (3.5-5.0); Albumin/Globulin Ratio 1.3 (1.1-1.8); Alkaline Phosphatase 72 U/L (38-126); Anion Gap 13.5 mEq/L (5-15); Aspartate Amino Transferase 26 U/L (17-59); Bilirubin,Total 0.6 mg/dl (0.2-1.3); Blood Urea Nitrogen 16 mg/dl (9-20); Calcium 9.2 mg/dl (8.4-10.2); Carbon Dioxide 30 mmol/L (22.0-30.0); Chloride 97 mmol/L (98-107); Cholesterol 184 mg/dl (140-200); Estimated Glomerular Filt Rate 89 ml/min (>60); GFR (African American) 107 ML/MIN (>60); Globulin 3.3 g/dL (1.3-3.2); Glucose 137 mg/dl (74-100); HDL Cholesterol 46 mg/dl (40-60); Potassium 3.5 mmoL/L (3.5-5.1); Sodium 137 mmol/L (136-145); Total Protein,Serum 7.6 g/dl (6.3-8.2); Triglycerides 151 mg/dl (30-150); VLDL Cholesterol 30 mg/dL (0-40)
[2024-12-24 19:25] LABS: Direct LDL Cholesterol 108.56 mg/dL (100-129)
[2024-12-24 19:48] LABS: Prostate Specific Ag Screen 0.3 ng/ml (0.0-4.0)
[2024-12-24 19:56] LABS: Hemoglobin A1C 6.4 % (4.0-6.0)
== END 2024-12-24 23:59 | disposition home or self-care (01) ==
LOC: LAB.DROPOF 12-27 09:07
PROVIDERS: PCP Family Medicine; Visit Provider Family Medicine
DX: I10 Essential (primary) hypertension (principal); R73.09 Other abnormal glucose; Z15.01 Genetic susceptibility to malignant neoplasm of breast; Z15.09 Genetic susceptibility to other malignant neoplasm
CPT/HCPCS: 80053; 80061; 83036; G0103

== ENCOUNTER 2025-04-15 13:41 | Outpatient (CLI) | payer BC, SELFPAY ==
--- OUTSIDE RECORDS SUMMARY | 2025-04-15 13:43 | XMS_ITS | Clinical Summary ---
Author Organization Healthcare Address [address] [place] [address] Care Team Providers Care Chef Kitchen Manager Name Role Phone Em Valencia APRN Unavailable [phone] Jude Hodge MD Primary Care Provider [phone] Allergies No known active allergies Medications meloxicam (Mobic) 15 MG tablet Take 1 tablet (15 mg) by mouth 1 (one) time each day. 4 Active pantoprazole (Protonix) 40 MG EC tablet Take 1 tablet (40 mg) by mouth 1 (one) time each day. 4 Active rivaroxaban (Xarelto) 15 MG tablet Take 1 tablet (15 mg) by mouth 2 (two) times a day with meals. Take with food. Active acetaminophen (Tylenol) 325 MG tablet Take 2 tablets (650 mg) by mouth every 6 (six) hours if needed for pain. 100 tablet 4 Active Lidocaine (HM Lidocaine Patch) 4 % patch Apply 1 patch topically 1 (one) time each day at the same time. After 12 hours, remove for a 12 hour off period 30 patch 4 Active atorvastatin (Lipitor) 10 MG tablet Take 1 tablet (10 mg) by mouth 1 (one) time each day. 4 Active amLODIPine (Norvasc) 2.5 MG tablet Take 1 tablet (2.5 mg) by mouth 1 (one) time each day. 4 Active Active Problems Problem Noted Date Diagnosed Date Morbid obesity 02/17/2024 SIRS (systemic inflammatory response syndrome) 0 02/17/2024 Pulmonary embolism 02/17/2024 Rupture of anterior cruciate ligament of left kn ee 02/17/2024 Acute deep vein thrombosis ( DVT) of proximal vein of both lower extremities 02/17/2024 Immunizations Immunization Administration Dates Next Due Hep A, Adult 08/25/2018 Family History Medical History Relation Name Comments Cancer Father Stroke Father Hypertension Mother Relation Name Status Comments Father Mother Social History Tobacco Use Types Packs/Day Years Used Date Smoking Tobacco: Never Smokeless Tobacco: Never Tobacco Cessation:Counseling Given: Not Answered Alcohol Use Standard Drinks/Week Comments Not Currently 0 (1 standard drink = 0.6 oz pur e alcohol) Occasional alcohol Humiliation, Afraid, Rape, and Kick questionnair e Answer Date Recorded Within the last year, have y ou been afraid of your partner or ex-partner? No 02/19/2024 Within the last year, have y ou been humiliated or emotionally abused in other ways by your partner or ex-partner? No Within the last year, have y ou been kicked, hit, slapped, or otherwise physically hurt by your partner or ex-partner? No 02/19/2024 Within the last year, have y ou been raped or forced to have any kind of sexual activity by your partner or ex-partner? No 02/19/2024 Overall Financial Resource Strain (CARDIA) Answe r Date Recorded How hard is it for you to pa y for the very basics like food, housing, medical care, and heating? Not hard at all 02/19/2024 Hunger Vital Sign Answer Date Recorded Within the past 12 months, y ou worried that your food would run out before you got the money to buy more. Never true 02/19/20 24 Within the past 12 months, t he food you bought just didn't last and you didn't have money to get more. Never true 02/19/2024 PRAPARE - Transportation Answer Date Re corded In the past 12 months, has l ack of transportation kept you from medical appointments or from getting medications? No 02/06 In the past 12 months, has l ack of transportation kept you from meetings, work, or from getting things needed for daily living? No 02/19/2024 Housing Stability Vital Sign Answer Denny e Recorded In the last 12 months, was t here a time when you were not able to pay the mortgage or rent on time? No 02/19/2024 In the last 12 months, how many places have you lived? 1 02/19/2024 In the last 12 months, was t here a time when you did not have a steady place to sleep or slept in a [place] [facility] [place] (including now)? No 02/19/2024 CAGE ASSESSMENT Answer Date Recorded Cage unable to access Not on file 02/18/2024 Cage max number of drinks Not on file 2023 Cage Beverages a week Not on file 02/18/2024 Have you ever felt you should CUT down on your d rinking? 0 02/18/2024 Have you been ANNOYED by people criticizing your drinking? 0 02/18/2024 Have you felt GUILTY about your drinking? 0 02/18/2024 Have you had a drink first t radha in the morning (EYE-MANAGER WILLOW) to steady your nerves or to get rid of a hangover? 0 02/18/2024 CAGE Questionnaire Score 0 024 Utilities Answer Date Recorded In the past 12 months has th e electric, gas, oil, or water company threatened to shut off services in your home? No 02/19/2024 Sex and Gender Information Value Date Recorded Sex Assigned at Not on file Legal Sex Male 2:59 PM EDT Gender Identity Not on file Sexual Orientation Not on file Last Filed Vital Signs Vital Sign Reading Time Taken Comments Blood Pressure 147/93 03/26/2024 1:18 PM EDT Pulse 78 03/26/2024 1:18 PM EDT Temperature 36.7 C (98 F) 03/26/2024 1:18 PM EDT Respiratory Rate 14 02/21/2024 7:48 AM EDT Oxygen Saturation 96% 03/26/2024 1:18 PM EDT Inhaled Oxygen Concentration - - Weight 135 kg (297 lb 9.9 oz) 06/25/2024 11:37 A M EDT Height 182.9 cm (6') 06/25/2024 11:37 AM EDT Body Mass Index 40.36 06/25/2024 11:37 AM EDT Plan of Treatment Upcoming Encounters Date Type Department Care Team (Late st Contact Info) Description 06/09/2025 10:30 AM EDT Appointment [facility] [address] [place] [address] 06/09/2025 2:00 PM EDT Office Visit [facility] [address] [place] [address] Em Valencia, BABCOCK TESTER [address] [place] [address] Health Maintenance Due Date Last Done Comments [facility]-Depression Screening 1972 [facility]-Infant/Child/Adol SDOH Screenings 1972 [facility]- SDOH Screenings 1990 [facility]-Adult SDOH Screenings 1990 [facility]-DTaP,Tdap,and Td Vaccine s (1 - Tdap) 1991 [facility]-Hepatitis B Vaccines (1 of 3 - 19+ 3-dose series) 1991 Genetic high-risk prostate screening 2012 CT Colonography 2017 Colonoscopy 2017 FIT-DNA 2017 FIT 2017 FOBT 2017 Sigmoidoscopy 2017 [facility]-Colorectal Cancer Screening 2017 [facility]-Hepatitis A Vaccines (2 of 2 - Risk 2-dose series) 02/23/2019 08/25/2018 [facility]-Pneumococcal Vaccine: 50 + Years (1 of 1 - PCV) 2022 [facility]-Zoster Vaccines (1 of 2) 2022 OIV-PSSNP-98 Vaccine (1 - season) 2024 [facility]-Influenza Vaccine (#1) 2025 [facility]-HIV Screening Completed 02/17/2024 [facility]-Hepatitis C Screening Completed 02/17/2024 [facility]-Obesity Intervention Completed 024, 01/14/2024 HPV Vaccines Aged Out No longer eligi ble based on patient's age to complete this topic [facility]-HIB Vaccines Aged Out No longer e ligible based on patient's age to complete this topic [facility]-IPV Vaccines Aged Out No longer e ligible based on patient's age to complete this topic [facility]-Rotavirus Vaccines Aged Out No lo nger eligible based on patient's age to complete this topic Procedures Procedure Name Priority Date/Time Associated Diagnosis Comments HEPATITIS C ANTIBODY - ED W/REFLEX TO HCV QUANT PCR STAT 02/17/2024 8:31 PM EDT ED HIV 1/2 ANTIBODY/ANTIGEN SCREEN WITH REFLEX TO HIV I/II DIFFERENTIATION STAT 02/17/2024 8:31 PM EDT from Last 3 Months or Most Recently Relevant to Health Maintenance Results * ED HIV 1/2 Antibody/Antigen Screen w/Reflex to HIV 1/2 Differentiation (02/17/2024 8:31 PM EDT) [facility] HIV 1 & 2 Antibody/Antigen Screen Non Reactive Non Reactive 02/17/2024 9:17 PM EDT [facility] Comment:Screening for HIV 1 & 2 antibodies, and P24 antigen is NONREACTIVE. No confirmatory testing is required. Blood Venous blood specimen / Unknown Venipuncture / Unknown 02/17/2024 8:31 PM EDT 02/17/2024 8:40 PM EDT [facility] [place] [facility] BLOOD ORDERABLES Final R esult Performing Organization Address [facility] Co de Phone Number [facility] [address] [place] [address] * Hepatitis C Antibody - ED (02/17/2024 8:31 PM EDT) [facility] Hepatitis C Antibody Negative Negative 02/17/2024 9:14 PM EDT [facility] Blood Venous blood specimen / Unknown Venipuncture / Unknown 02/17/2024 8:31 PM EDT 02/17/2024 8:40 PM EDT [facility] [place] [facility] BLOOD ORDERABLES Final R esult Performing Organization Address [facility]/ZIP Co de Phone Number [facility] [address] [place] [address] from Last 3 Months or Most Recently Relevant to Health Maintenance Insurance [facility] Advance Directives * Full Code (Latest Code Status on File) Date Activated Date Inactivated Comments 02/17/2024 10:53 PM 02/21/2024 5:42 PM Question Answer Comments Patient has decision-making capacity? Yes Care Teams Chef Kitchen Manager Relationship Specialty Start Date End Date Jude Hodge MD [address] [place] [address] PCP - General 06/25/24 Em Valencia APRN [address] [facility] [address] [place] [address] Nurse Practitioner Surgical Oncology 03/25/24
[2025-04-16 16:13] LABS: Anti-Cardio Antibody IgM <9 MPL U/mL (0-12); Anti-Cardiolipin Antibody IgG <9 GPL U/mL (0-14)
[2025-04-18 15:19] LABS: Beta-2 Glycoprotein I Ab, IgG <9 (0-20); Beta-2 Glycoprotein I Ab, IgM <9 (0-32)
== END 2025-04-15 23:59 | disposition home or self-care (01) ==
LOC: LAB 13:41
PROVIDERS: PCP Family Medicine; Visit Provider Internal Medicine Medical Oncology
DX: I82.403 Acute embolism and thrombosis of unspecified deep veins of lower extremity, bilateral (principal); I82.622 Acute embolism and thrombosis of deep veins of left upper extremity; I26.99 Other pulmonary embolism without acute cor pulmonale
CPT/HCPCS: 36415; 81240; 81241; 85300; 85301; 85302; 85306; 86146; 86147